=== PATIENT | female | born 1990 | race Caucasian/White ===

== ENCOUNTER 2020-11-28 11:18 | Inpatient (IN) ==
[2020-11-28] MEDS ORDERED: OXYTOCIN 30 UNITS/500 ML BAG IV PRN ×2 (11:57→20:42)
[2020-11-28] MEDS ORDERED: ePHEDrine sulfate 50 MG/ML AMP ONE (12:17)
[2020-11-28] MEDS ORDERED: SODIUM CHLORIDE 0.9% INJ 10 ML VIAL ONE (12:17)
[2020-11-28] MEDS ORDERED: BUPIVACAINE 0.25% 30 ML VIAL ONE (12:17)
[2020-11-28] MEDS ORDERED: fentaNYL citrate 100 MCG/2 ML VIAL ONE (12:18)
[2020-11-28] MEDS ORDERED: fentaNYL 2MCG/ML ROPIVACAINE 1.25MG/ML 100 ML BAG EPI ONE (12:18)
[2020-11-28] MEDS: LACTATED RINGER'S 1,000 ML IV PRN ×3 (12:32→18:42)
[2020-11-28 12:40] LABS: Hematocrit (blood only) 36.5 % (37-47); Hemoglobin 13.1 g/dL (12.0-16.0); Mean Corpuscular Hemoglobin 33.2 pg (25-34); Mean Corpuscular Volume 92.4 fL (80-100); Mean Platelet Volume 11.3 fL (7.4-10.4); Platelet Count 199 K/uL (130-400); RDW Coefficient of Variation 13.7 % (11.5-14.5); RDW Standard Deviation 46.6 fL (36.4-46.3); Red Blood Count 3.95 M/uL (4.2-5.4); White Blood Count 10.65 K/uL (4.8-10.8)
[2020-11-28] MEDS ORDERED: diphenhydrAMINE 50 MG/ML VIAL IV PRN (12:44)
[2020-11-28] MEDS ORDERED: fentaNYL 2MCG/ML ROPIVACAINE 1.25MG/ML 100 ML BAG EPI PRN (12:44)
[2020-11-28] MEDS ORDERED: ONDANSETRON INJ 2 MG/ML 2 ML VIAL IV PRN (12:44)
[2020-11-28] MEDS ORDERED: NALOXONE HCL 0.4 MG/1 ML VIAL/CARP IV PRN (12:44)
[2020-11-28] MEDS ORDERED: ePHEDrine sulfate 50 MG/ML AMP IV PRN (12:44)
[2020-11-28] MEDS ORDERED: NALOXONE HCL 1 MG in SODIUM CHLORIDE 0.9% 1000ML 1,000 ML IV PRN (12:44)
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
[2020-11-28 12:50] LABS: Mean Corpuscular Hgb Conc 35.9 g/dL (32-36)
[2020-11-28] MEDS ORDERED: BENZOCAINE 20% AER SPR 82.5 GM CAN EXT PRN (20:42)
[2020-11-28] MEDS ORDERED: DIPHTHERIA/TETANUS/PERTUSSIS 0.5 ML SYR/VIAL IM ONE (20:42)
[2020-11-28] MEDS ORDERED: ACETAMINOPHEN 325 MG TAB PO PRN (20:42)
[2020-11-28] MEDS ORDERED: SUPERCREAM 0.870% 15 GM JAR EXT PRN (20:42)
[2020-11-28] MEDS ORDERED: bisacodyL 10 MG SUPP PR PRN (20:42)
[2020-11-28] MEDS ORDERED: HYDROCORTISONE ACETATE 25 MG SUPP PR PRN (20:42)
[2020-11-28] MEDS ORDERED: oxyCODONE/ACETAMINOPHEN 5mg/325mg TAB PO PRN (20:42)
--- NOTE | 2020-11-28 22:29 | Anesthesia Procedure Note ---
Date of Service November 28, 2020 Anesthesia Post Epidural Note Vital Signs Vital Signs: Temp Pulse Resp BP Pulse Ox 36.9 C 103 H 18 125/75 89 L 11/28/20 20:26 11/28/20 22:27 11/28/20 21:56 11/28/20 22:27 11/28/20 20:36 Notes Mental Status: alert / awake / arousable and participated in evaluation Nausea / Vomiting: adequately controlled Pain: adequately controlled Airway Patency, RR, SpO2: stable & adequate BP & HR: stable & adequate Hydration State: stable & adequate Neuraxial Anesthesia: was administered and sensory block is resolving Anesthetic Complications: no major complications apparent and Pt Satisfied with anesthetic care Epidural: Removed without complications and With tip intact Notes: Epidural site clean, dry and intact. No signs of edema, erythema or bruising at insertion site. Pt instructed to request anesthesia if she has residual lower extremity numbness or if she develops lower extremity pain or weakness, back pain or headache.
[2020-11-28] MEDS: IBUPROFEN 600 MG TAB PO PRN (22:45)
[2020-11-29] MEDS: IBUPROFEN 600 MG TAB PO PRN ×5 (03:39→21:34)
--- NOTE | 2020-11-29 05:08 | Obstetrical Progress Note ---
Date of Service <Shiva Carlos MD - Last Filed: 11/29/20 07:32> November 29, 2020 Assessment & Plan <Shiva Carlos MD - Last Filed: 11/29/20 07:32> (1) Supervision of normal intrauterine in primigravida: - PNL: Rh neg, RI, GBS neg, COVID neg - Feels well today. Eating well, voiding well, ambulating well - Pain well controlled with ibuprofen 600mg Q4H PRN - Routine care -- OOB, ambulation, diet progression as tolerated - After discharge will have 6 week follow-up with Dr. Robles Subjective <Shiva Carlos MD - Last Filed: 11/29/20 07:32> Gena is a 29 y/o female who is PPD #1 following at 39+ weeks. She reports feeling well overall this morning. Some abdominal cramping and 4/10 pain well managed on analgesics. Voiding well. Tolerating meals overnight without difficulty. Patient has been able to ambulate some. Not yet passing gas or had bowel movement yet . Has persistent lochia with some improvement this morning. Currently . Review of Systems Denies fever or chills. Denies shortness of breath or cough. Denies chest pain. Denies breast pain. Denies dysuria. Denies leg pain or leg swelling. Denies headache or changes in vision. Physical Exam <Shiva Carlos MD - Last Filed: 11/29/20 07:32> General: Alert, oriented. No acute distress. Cardiac: Regular rate and rhythm. No murmurs. Respiratory: Clear to auscultation bilaterally a/p, no wheezes/rales/rhonchi. No increased work of breathing. Symmetrical chest rise. No respiratory distress. Abdomen: Soft, nontender, nondistended. Bowel sounds present. Uterus: Uterine fundus firm, palpable ~1 cm below umbilicus. Lower Extremities: No lower extremity edema or swelling. No deep calf pain. Kenny's negative bilaterally. Results & Data ([facility]) <Shiva Carlos MD - Last Filed: 11/29/20 07:32> Vital Signs (Past 12 Hours) Vital Signs Temp Pulse Pulse Resp BP BP Pulse Ox 11/29/20 03:05 37.2 C 93 H 18 108/58 L 98 11/28/20 23:00 36.7 C 76 18 137/81 100 11/28/20 22:27 36.9 C 103 H 18 125/75 11/28/20 22:11 82 102/56 L 11/28/20 21:56 98 H 18 121/72 11/28/20 21:41 109 H 121/75 11/28/20 21:26 93 H 18 117/63 11/28/20 21:12 102 H 18 116/57 L 11/28/20 20:56 104 H 18 118/61 11/28/20 20:41 100 H 18 134/77 11/28/20 20:36 93 H 89 L 11/28/20 20:34 112 H 100 11/28/20 20:30 93 H 89 L 11/28/20 20:29 87 100 11/28/20 20:26 36.9 C 81 18 131/68 11/28/20 20:24 80 100 11/28/20 20:19 89 95 11/28/20 20:18 81 123/64 11/28/20 20:17 87 91 11/28/20 20:14 87 99 11/28/20 20:09 95 H 98 11/28/20 20:04 84 96 11/28/20 20:03 108 H 136/73 94 11/28/20 19:59 84 100 11/28/20 19:54 88 100 11/28/20 19:49 102 H 100 11/28/20 19:48 94 H 121/58 L 11/28/20 19:47 103 H 94 11/28/20 19:44 98 H 100 11/28/20 19:41 129 H 91 11/28/20 19:39 136 H 85 L 11/28/20 19:35 99 H 117/62 86 L 11/28/20 19:34 110 H 100 11/28/20 19:29 90 98 11/28/20 19:28 101 H 86 L 11/28/20 19:24 106 H 99 11/28/20 19:20 101 H 130/81 11/28/20 19:19 103 H 98 11/28/20 19:14 98 H 94 11/28/20 19:13 100 H 93 03/21/21 19:09 86 98 11/28/20 19:05 89 134/78 11/28/20 19:04 97 H 91 11/28/20 18:59 101 H 99 11/28/20 18:54 108 H 98 11/28/20 18:49 108 H 118/73 98 11/28/20 18:44 107 H 99 11/28/20 18:39 81 99 11/28/20 18:34 88 116/74 99 11/28/20 18:29 94 H 98 11/28/20 18:24 90 98 11/28/20 18:19 100 H 98 11/28/20 18:18 98 H 118/78 11/28/20 18:14 99 H 98 11/28/20 18:09 88 98 11/28/20 18:04 96 H 98 11/28/20 18:03 108 H 127/78 11/28/20 17:59 72 98 11/28/20 17:54 77 99 11/28/20 17:49 100 H 117/71 98 11/28/20 17:44 117 H 98 11/28/20 17:39 101 H 98 11/28/20 17:34 88 112/73 97 11/28/20 17:29 71 99 11/28/20 17:24 81 100 11/28/20 17:19 89 100 11/28/20 17:15 108 H 91 11/28/20 17:14 88 100 11/28/20 17:09 73 128/71 100 <Ernestina Robles MD - Last Filed: 11/29/20 08:00> Co-Signing Physician Notes Resident Physician Supervision Note: I interviewed and examined the patient. Discussed with Dr. Craft and agree with findings and plan as documented in the note. Any exceptions or clarifications are listed here: Documented By: Ernestina Robles MD, FACOG Resident Activity Tracking <Shiva Carlos MD - Last Filed: 11/29/20 07:32> Resident Involvement: Resident Care Provided Care Provided: OB Delivery
[2020-11-29 06:26] LABS: Hematocrit (blood only) 33.1 % (37-47); Hemoglobin 11.5 g/dL (12.0-16.0)
[2020-11-29] MEDS: PRENATAL VITAMIN 1 TAB PO SCH (08:05)
[2020-11-29] MEDS: DOCUSATE SODIUM 100 MG CAP PO SCH ×3 (08:05→21:23)
[2020-11-29] MEDS ORDERED: bisacodyL 5 MG TABEC PO SCH (20:00)
[2020-11-30] MEDS: IBUPROFEN 600 MG TAB PO PRN ×3 (01:30→09:44)
--- NOTE | 2020-11-30 05:26 | Obstetrical Progress Note ---
Date of Service <Shiva Carlos MD - Last Filed: 11/30/20 07:03> November 30, 2020 Assessment & Plan <Shiva Carlos MD - Last Filed: 11/30/20 07:03> (1) Supervision of normal intrauterine in primigravida: - PNL: Rh neg, RI, GBS neg, COVID neg - Feels well today. Eating well, voiding well, ambulating well - Pain well controlled with ibuprofen 600mg Q4H PRN - Routine care -- OOB, ambulation, diet progression as tolerated - After discharge will have 6 week follow-up with Dr. Robles Subjective <Shiva Carlos MD - Last Filed: 11/30/20 07:03> Gena is a 29 y/o female who is PPD #2 following at 39+ weeks. She reports feeling well overall this morning. Light abdominal cramping and 2/10 pain well managed on analgesics. Voiding well. Tolerating meals overnight without difficulty. Patient has been able to ambulate some. Is passing gas but has not yet had bowel movement. Has persistent lochia with some improvement this morning. Currently . Review of Systems Denies fever or chills. Denies shortness of breath or cough. Denies chest pain. Denies breast pain. Denies dysuria. Denies leg pain or leg swelling. Denies headache or changes in vision. Physical Exam <Shiva Carlos MD - Last Filed: 11/30/20 07:03> General: Alert, oriented. No acute distress. Cardiac: Regular rate and rhythm. No murmurs. Respiratory: Clear to auscultation bilaterally a/p, no wheezes/rales/rhonchi. No increased work of breathing. Symmetrical chest rise. No respiratory distress. Abdomen: Soft, nontender, nondistended. Bowel sounds present. Uterus: Uterine fundus firm, palpable ~2 cm below umbilicus. Lower Extremities: No lower extremity edema or swelling. No deep calf pain. Kenny's negative bilaterally. Results & Data ([facility]) <Shiva Carlos MD - Last Filed: 11/30/20 07:03> Vital Signs (Past 12 Hours) Vital Signs Temp Pulse Resp BP Pulse Ox 11/30/20 01:00 36.6 C 80 18 121/79 98 11/29/20 19:25 36.9 C 93 H 20 117/72 <Rebeca Gamboa DO - Last Filed: 11/30/20 08:23> Co-Signing Physician Notes Resident Physician Supervision Note: I was present with Dr. Craft during the history and exam. I discussed the case with the resident and agree with the findings and plan as documented in the note. Any exceptions or clarifications are listed here: PPD#2 doing well. Reviewed DC instructions. Followup 6w PP. Documented By: Rebeca Gamboa DO Resident Activity Tracking <Shiva Carlos MD - Last Filed: 11/30/20 07:03> Resident Involvement: Resident Care Provided Care Provided: OB Delivery
[2020-11-30] MEDS: DOCUSATE SODIUM 100 MG CAP PO SCH (08:38)
[2020-11-30] MEDS: PRENATAL VITAMIN 1 TAB PO SCH (08:38)
--- NOTE | 2020-12-01 08:08 | Delivery Summary ---
Vaginal Delivery Summary Date of Service November 28, 2020 Vaginal Delivery Summary DIAGNOSES: 1. Olmedo intrauterine at term gestation. 2. Spontaneous onset of labor. 3. Group B Streptococcus Neg. PROCEDURE: Spontaneous vaginal delivery and repair of Bilateral Sulcal and 2nd Degree laceration. SURGEON: Ernestina Robles MD. SAT INSTRUCTOR: None. ESTIMATED BLOOD LOSS: 500 mL. COMPLICATIONS: None. PLACENTA: Spontaneous and intact with a 3-vessel cord. DISPOSITION: Stable to labor and delivery. DESCRIPTION: The patient pushed well and brought the head to in OA position. The infant's head was allowed to deliver with contraction force and no further active pushing, with the perineum protected during this time. The shoulders delivered easily with a maternal pushing effort. There was no nuchal cord. The body delivered without any difficulty, and the infant was placed on the maternal abdomen. It was vigorous and moving all extremities, and making respiratory efforts. The cord was doubly clamped by the MD and then cut by the FOB. The placenta delivered spontaneously and was noted to be intact and with a 3VC. The cervix, vagina and perineum were examined and were found to have extensive lacerations including bilateral sulcal lacerations, R worse than L, and a second degree perineal laceration which exposed but did not disrupt the anal sphincter. Rectal exam prior to repair showed no rectal laceration, and after repair showed no suture invading the rectum. Repair was done with Dr. Gamboa assisting once she arrived to L&D for this purpose. Exposure of the paravaginal fat on the R side led to some concern for tear into / exposing abdominal cavity; this was gently explored using retraction and good lighting. The apex of this sulcus tear reached about [address] up the vaginal canal but did NOT reach the fornix and did NOT enter the abdominal cavity; fat exposed was only paravaginal. Once this was ensured, repair proceeded with running locked 3-0 Vicryl. Similar repair was done on the L sulcus. The remaining tear was assessed again and was a 2nd degree perineal, which was repaired with 2-0 and 3-0 vicryl in the usual manner.. The fundus was firm and lochia minimal immediately after delivery. [facility] Vaginal Delivery Charge Vaginal Delivery Codes: 52101 global code for the antepartum, delivery, and post-
== END 2020-11-30 16:25 | disposition home or self-care (01) | DRG 807 ==
LOC: OPB 11:18 → 4S1 11:24 → 4S2 22:53